=== PATIENT | female | born 1990 | race Caucasian/White ===

== ENCOUNTER 2017-08-19 00:59 | Emergency (ER) | payer OTHER ==
[~2017-08-19] VITALS: Ht 165.1 cm; Wt 63.3 kg
[2017-08-19 04:13] VITALS: BP 129/79
== END 2017-08-19 04:13 | disposition home or self-care (01) ==
LOC: EME 00:59
PROVIDERS: Emergency Medicine
DX: R55 Syncope and collapse (principal); S06.0X0A Concussion without loss of consciousness, initial encounter; R07.0 Pain in throat; W07.XXXA Fall from chair, initial encounter; Z91.040 Latex allergy status
CPT/HCPCS: 70450; 72125; 81025; 93005; 99281; 99282